=== PATIENT | female | born 1990 | race African-American/Black ===

== ENCOUNTER 2017-07-30 18:19 | Emergency (ER) | payer OTHER ==
[2017-07-30 18:22] VITALS: BP 140/81; PULSE 114; RESP 16; TEMP 99.3; O2SAT 95
[2017-07-30] MEDS ORDERED: OSEL75 PO (18:42)
--- NOTE | 2017-07-30 18:42 | PD ---
HPI Chief Complaint: Cold / Flu Symptoms Time Seen by Provider: 18:34 Travel History International Travel<30 days: No Contact w/Intl Traveler<30days: No Traveled to known affect area: No History of Present Illness HPI 27-year-old female here with sore throat, cough, congestion, body aches, fever. 2 over children tested positive for flu today. Patient reports symptoms are not improved by OTC cough cold medication. She is requesting treatment for the flu. Severity is moderate. PFSH Past Medical History LMP: CURRENT Social History Tobacco Use: No Allergies-Medications (Allergen,Severity, Reaction): Coded Allergies: No Known Allergies (Unverified , 07/30/17) Review of Systems Except as stated in HPI: all other systems reviewed are Neg General / Constitutional: Positive: Fever Respiratory: Positive: Cough Physical Exam Narrative GENERAL: Alert female. Well-appearing. SKIN: Warm and dry. HEAD: Normocephalic. EYES: No scleral icterus. No injection or drainage. MOUTH: Mild pharyngeal erythema. No tonsillar hypertrophy or exudate. NECK: Supple, trachea midline. No lymphadenopathy. No meningismus CARDIOVASCULAR: Regular rate and rhythm without murmurs, gallops, or rubs. RESPIRATORY: Breath sounds equal bilaterally. No accessory muscle use. GASTROINTESTINAL: Abdomen soft, non-tender, nondistended. MUSCULOSKELETAL: No cyanosis, or edema. BACK: Nontender without obvious deformity. No CVA tenderness. Data Data Last Documented VS Vital Signs Date Time Temp Pulse Resp B/P (MAP) Pulse Ox O2 Delivery O2 Flow Rate FiO2 07/30/17 18:22 99.3 114 16 140/81 (100) 95 Room Air MDM Medical Decision Making Medical Screen Exam Complete: Yes Emergency Medical Condition: Yes Differential Diagnosis Influenza, viral illness, URI Narrative Course 27-year-old female with known exposure to flu and has flulike symptoms. Her symptoms are mild. This was discussed with patient. Symptomatically treatment was encouraged. She is requesting Tamiflu. She was instructed to follow with her PCP Diagnosis Primary Impression: Influenza Referrals: Primary Care Physician Additional Instructions: Stay well hydrated by drinking plenty of fluids. Take [id number] Tylenol or ibuprofen as needed for pain. Follow-up the primary doctor. Scripts Oseltamivir (Tamiflu) 75 Mg Cap 75 MG PO BID for Mgmt Viral Infection for 5 Days, #10 CAP 0 Refills Prov: Heather Guillen 07/30/17 Disposition: 01 DISCHARGE HOME Condition: Stable Heather Guillen Jul 30, 2017 18:42
== END 2017-07-30 18:55 | disposition home or self-care (01) ==
LOC: NEPK 18:19
DX: J11.1 Influenza due to unidentified influenza virus with other respiratory manifestations (principal)
CPT/HCPCS: 99283

== ENCOUNTER 2017-08-03 14:24 | Emergency (ER) | payer OTHER ==
[~2017-08-03] VITALS: Ht 160 cm; Wt 122.5 kg
[~2017-08-03 14:24] MED LIST: OSEL75 PO
[2017-08-03 14:29] VITALS: BP 162/102; PULSE 89; RESP 22; TEMP 98
[2017-08-03] MEDS ORDERED: BENZ100 PO (14:57)
[2017-08-03] MEDS ORDERED: BENZ1LOZ5 PO (14:57)
[2017-08-03] MEDS ORDERED: IBUP-232 PO (14:57)
--- NOTE | 2017-08-03 14:58 | PD ---
HPI Chief Complaint: ENT Complaint Time Seen by Provider: 14:54 Travel History International Travel<30 days: No Contact w/Intl Traveler<30days: No Traveled to known affect area: No History of Present Illness HPI 27-year-old female patient with several kids who have been diagnosed with influenza, was seen in the ER several days ago and had been given Tamiflu which she states she could not fill because her insurance does not cover it, and she has had at least 2-3 days of symptoms. She has been having coughing, sore throat, nausea, and had initially had fevers but she states that the fevers have gone away. She denies other issues. Modifying Factors: None Associated Signs & Symptoms: Cough, sore throat, flulike symptoms for several days Risk Factors: Exposure to influenza, sick contacts PFSH Past Medical History Medical History: Denies Significant Hx Diminished Hearing: No Tetanus Vaccination: Unknown Influenza Vaccination: Yes ?: Not Past Surgical History Surgical History: No Previous Surgery Social History Alcohol Use: No Tobacco Use: No Substance Use: No Allergies-Medications (Allergen,Severity, Reaction): Coded Allergies: No Known Allergies (Unverified , 08/03/17) Reported Meds & Prescriptions Reported Meds & Active Scripts Active Review of Systems Except as stated in HPI: all other systems reviewed are Neg Physical Exam Narrative GENERAL: Well-developed young after [place] female patient currently in mild distress. Awake and oriented 3. SKIN: Focused skin assessment warm/dry. HEAD: Atraumatic. Normocephalic. EYES: Pupils equal and round. No scleral icterus. No injection or drainage. ENT: Mucosa pink and moist. Mild erythema with no exudates. No uvular edema. No uvular, palatal, or tonsillar deviation. Airway patent. NECK: Supple, nontender. No meningeal signs. Trachea midline. No JVD or lymphadenopathy. CARDIOVASCULAR: Regular rate and rhythm. No murmur appreciated. RESPIRATORY: No accessory muscle use. Clear to auscultation. Breath sounds equal bilaterally. GASTROINTESTINAL: Abdomen soft, non-tender, nondistended. Hepatic and splenic margins not palpable. MUSCULOSKELETAL: No obvious deformities. No clubbing. No cyanosis. No edema. NEUROLOGICAL: Awake and alert. No obvious cranial nerve deficits. Motor grossly within normal limits. Normal speech. PSYCHIATRIC: Appropriate mood and affect; insight and judgment normal. Data Data Last Documented VS Vital Signs Date Time Temp Pulse Resp B/P (MAP) Pulse Ox O2 Delivery O2 Flow Rate FiO2 08/03/17 14:29 98.0 89 22 162/102 (122) [facility] Medical Decision Making Medical Screen Exam Complete: Yes Emergency Medical Condition: Yes Medical Record Reviewed: Yes Differential Diagnosis Viral syndrome versus influenza versus URI Narrative Course At this point, her symptoms of been going on for close to 3 days and actually is improving. I did not think that Tamiflu would make much of a difference. However, she has to prescription and she has the option of filling it out and trying it. She does not have significant throat edema, is able to swallow liquids and is well-hydrated this point. Mucous membranes are moist. My plan would be to treat her symptomatically. Return for any worsening in symptoms as necessary. The plan has been discussed with her and she states understanding. Diagnosis Primary Impression: Viral syndrome Med/Other Pt SpecificInfo: Prescription(s) given Scripts Benzonatate (Tessalon Perles) 100 Mg Cap 100 MG PO TID Y for COUGH, #15 CAP 0 Refills Prov: Sarwat Dodson MD 08/03/17 Benzocaine-Menthol Lozenge (Cepacol Sore Throat Lozenge) 15-3.6 Mg Lozg 1 LOZENGE PO Q2H Y for SORE THROAT, #1 CONTAINER 0 Refills Prov: Sarwat Dodson MD 08/03/17 Ibuprofen (Ibuprofen) 600 Mg Tab 600 MG PO Q6H Y for Pain/Inflammation, #20 TAB 0 Refills Prov: Sarwat Dodson MD 08/03/17 Disposition: 01 DISCHARGE HOME Condition: Stable Sarwat Dodson MD Aug 03, 2017 14:58
== END 2017-08-03 15:51 | disposition home or self-care (01) ==
LOC: NEPD 14:24
DX: B34.9 Viral infection, unspecified (principal)
CPT/HCPCS: 99283